=== PATIENT | male | born 1940 | race Caucasian/White ===

== ENCOUNTER 2019-09-02 12:36 | Emergency (ER) | payer MEDICARE, OTHER ==
--- NOTE | 2019-09-02 13:06 | EDM.PDOC ---
ED HPI GENERAL MEDICAL PROBLEM - General Chief Complaint: General Stated Complaint: WEAKNESS Time Seen by Provider: 09/02/19 12:39 Source of Information: Reports: Patient, EMS - History of Present Illness INITIAL COMMENTS - FREE TEXT/NARRATIVE: Presents via EMS. According to this provider, the patient's sister called the ambulance due to the patient's profound weakness, failure to thrive and that he had fallen or was on his knees and unable to get up. According to her, the patient [place] and very minimal contact with any family. Over the winter his sister had moved him to the [place] area to live with her. He did well until about 3 weeks ago when he quit eating, became depressed and failed to thrive. 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 EMS stated all he was eating was ice cream, candy and a small container of water in a day. Had been on his knees on the floor for an unknown period of time and has superficial abrasions there along with redness. The EMS provider stated that the patient initially seemed of sound mind while they were on scene was refusing to be transferred. He did make some statements about "put a gun to the head" and "find a hole to put me in". Whenever the patient could not get off the floor due to profound weakness and then made some statements which indicated confusion and thus he was transferred. The patient states he didn't fall and that he has no pain anywhere. He also states he has "no idea" why he is here. A review of the records indicates the patient has a primary provider here in [place]. His listed medical problems include diabetes mellitus, dyslipidemia , hypertension, urinary retention and dementia. Was last seen by his provider there on 02/26/2019. To his sister's knowledge he takes his medications on a regular basis. - Related Data Allergies Allergy/AdvReac Type Severity Reaction Status Date / Time No Known Allergies Allergy Verified 09/02/19 12:37 Home Meds: Home Meds Aspirin 81 mg PO DAILY 09/02/19 [History] Cyanocobalamin (Vitamin B-12) [Vitamin B-12] 1 tab PO ASDIRECTED 09/02/19 [ History] Donepezil [Aricept] 10 mg PO DAILY 09/02/19 [History] Finasteride 5 mg PO DAILY 09/02/19 [History] Lovastatin 10 mg PO DAILY 09/02/19 [History] Potassium Gluconate [Potassium] 99 mg PO DAILY 09/02/19 [History] lisinopriL [Lisinopril] 40 mg PO DAILY 09/02/19 [History] metFORMIN [Glucophage XR] 500 mg PO BID 09/02/19 [History] ED ROS GENERAL - Review of Systems Review Of Systems: Unable To Obtain (Due to confusion and delirium) Reason Not Obtained: Dementa/delirium Constitutional: Reports: No Symptoms ED EXAM, GENERAL - Physical Exam Exam: See Below Exam Limited By: Altered Mental Status General Appearance: Alert, No Apparent Distress, Cachetic, Other (Unkept) Eye Exam: Bilateral Eye: PERRL Ears: Normal External Exam Nose: Normal Inspection Throat/Mouth: Normal Inspection (Garcia), Other (dentition in poor repair) Head: Atraumatic, Normocephalic, Other (beared) Neck: Normal Inspection Respiratory/Chest: No Respiratory Distress, Lungs Clear, Normal Breath Sounds Cardiovascular: Normal Peripheral Pulses, Regular Rate, Rhythm, No Edema, No Murmur GI/Abdominal: Normal Bowel Sounds, Soft, Non-Tender, No Distention (Male) Exam: Normal Inspection Back Exam: Normal Inspection Extremities: Other (weak--could not bear weight) Neurological: Alert, Memory Loss Recent Events, Other (cognitive and memory deficit) Lymphatic: No Adenopathy EKG INTERPRETATION EKG Date: 09/02/19 Rhythm: NSR [place]: Normal P-Wave: Present QRS: Normal ST-T: Normal QT: Normal LA/PQ Interval: .15 Course - Vital Signs Last Recorded V/S: Last Vital Signs Temp 36.6 C 09/02/19 12:37 Pulse 68 09/02/19 18:38 Resp 17 09/02/19 18:08 BP 119/68 09/02/19 18:38 Pulse Ox 97 09/02/19 18:38 - Orders/Labs/Meds Orders: Active Orders 24 hr Category Date Time Status EKG 12 Lead [EKG Documentation Completion] [RC] ROUTINE Care 09/02/19 12:46 Active Kimball Catheter Insertion [Insert Urinary Catheter] [OM. Care 09/02/19 13:30 Ordered PC] Q24H Urinary Catheter Assessment [RC] ASDIRECTED Care 09/02/19 13:29 Active CULTURE BLOOD [BC] Stat Lab 09/02/19 13:20 Received CULTURE BLOOD [BC] Stat Lab 09/02/19 13:25 Received Heparin Sod,Pork In 0.45% Nacl [Heparin-1/2Ns 25,000 Med 09/02/19 16:00 Active Units/500] 25,000 unit in 500 ml IV TITRATE Blood Culture x2 Reflex Set [OM.PC] Stat Oth 09/02/19 13:07 Ordered Medication Orders Heparin Sodium/Sodium Chloride (Heparin-1/2ns 25,000 Units/500) 25,000 unit in 500 mls @ 17.962 mls/hr IV TITRATE ABEL; Protocol Last Admin: 09/02/19 16:34 Dose: 12 units/kg/hr, 17.962 mls/hr Labs: Laboratory Tests 09/02/19 09/02/19 09/02/19 Range/Units 12:52 12:52 12:52 WBC 16.34 H (4.0-11.0) K/uL RBC 5.39 (4.50-5.90) M/uL Hgb 16.2 (13.0-17.0) g/dL Hct 46.3 (38.0-50.0) % MCV 85.9 (80.0-98.0) fL MCH 30.1 (27.0-32.0) pg MCHC 35.0 (31.0-37.0) g/dL RDW Std Deviation 42.6 (28.0-62.0) fl RDW Coeff of Jonathan 14 (11.0-15.0) % Plt Count 237 (150-400) K/uL MPV 9.30 (7.40-12.00) fL Neut % (Auto) 85.3 H (48.0-80.0) % Lymph % (Auto) 7.4 L (16.0-40.0) % [place] % (Auto) 7.1 (0.0-15.0) % Eos % (Auto) 0.1 (0.0-7.0) % Baso % (Auto) 0.1 (0.0-1.5) % Neut # (Auto) 14.0 H (1.4-5.7) K/uL Lymph # (Auto) 1.2 (0.6-2.4) K/uL [place] # (Auto) 1.2 H (0.0-0.8) K/uL Eos # (Auto) 0.0 (0.0-0.7) K/uL Baso # (Auto) 0.0 (0.0-0.1) K/uL Nucleated RBC % 0.0 /100WBC Nucleated RBCs # 0 K/uL INR 1.01 APTT (18.6-31.3) SEC Lactate (0.20-2.00) mmol/L Sodium 143 (136-148) mmol/L Potassium 3.5 (3.5-5.1) mmol/L Chloride 104 (98-107) mmol/L Carbon Dioxide 26.3 (21.0-32.0) mmol/L BUN 20 H (7.0-18.0) mg/dL Creatinine 0.9 (0.8-1.3) mg/dL Est Cr Clr Drug Dosing 69.85 mL/min Estimated GFR (MDRD) > 60.0 ml/min Glucose 117 H (74-106) mg/dL Calcium 9.2 (8.5-10.1) mg/dL Total Bilirubin 0.8 (0.2-1.0) mg/dL AST 19 (15-37) IU/L ALT 12 L (14-63) IU/L Alkaline Phosphatase 97 (46-116) U/L Creatine Kinase 240 (26-308) U/L Troponin I 0.330 H* (0.000-0.056) ng/mL Total Protein 7.1 (6.4-8.2) g/dL Albumin 3.8 (3.4-5.0) g/dL Globulin 3.3 (2.6-4.0) g/dL Albumin/Globulin Ratio 1.2 (0.9-1.6) Urine Color Urine Appearance Urine pH (5.0-8.0) Ur Specific [place] (1.001-1.035) Urine Protein (NEGATIVE) mg/dL Urine Glucose (UA) (NEGATIVE) mg/dL Urine Ketones (NEGATIVE) mg/dL Urine Occult Blood (NEGATIVE) Urine Nitrite (NEGATIVE) Urine Bilirubin (NEGATIVE) Urine Urobilinogen (<2.0) EU/dL Ur Leukocyte Esterase (NEGATIVE) Urine RBC (0-2/HPF) Urine WBC (0-5/HPF) Ur Epithelial Cells (NONE-FEW) Amorphous Sediment (NEGATIVE) Urine Bacteria (NEGATIVE) 09/02/19 09/02/19 09/02/19 Range/Units 12:52 13:20 13:38 WBC (4.0-11.0) K/uL RBC (4.50-5.90) M/uL Hgb (13.0-17.0) g/dL Hct (38.0-50.0) % MCV (80.0-98.0) fL MCH (27.0-32.0) pg MCHC (31.0-37.0) g/dL RDW Std Deviation (28.0-62.0) fl RDW Coeff of Jonathan (11.0-15.0) % Plt Count (150-400) K/uL MPV (7.40-12.00) fL Neut % (Auto) (48.0-80.0) % Lymph % (Auto) (16.0-40.0) % [place] % (Auto) (0.0-15.0) % Eos % (Auto) (0.0-7.0) % Baso % (Auto) (0.0-1.5) % Neut # (Auto) (1.4-5.7) K/uL Lymph # (Auto) (0.6-2.4) K/uL [place] # (Auto) (0.0-0.8) K/uL Eos # (Auto) (0.0-0.7) K/uL Baso # (Auto) (0.0-0.1) K/uL Nucleated RBC % /100WBC Nucleated RBCs # K/uL INR APTT 25.7 (18.6-31.3) SEC Lactate 2.4 H* (0.20-2.00) mmol/L Sodium (136-148) mmol/L Potassium (3.5-5.1) mmol/L Chloride (98-107) mmol/L Carbon Dioxide (21.0-32.0) mmol/L BUN (7.0-18.0) mg/dL Creatinine (0.8-1.3) mg/dL Est Cr Clr Drug Dosing mL/min Estimated GFR (MDRD) ml/min Glucose (74-106) mg/dL Calcium (8.5-10.1) mg/dL Total Bilirubin (0.2-1.0) mg/dL AST (15-37) IU/L ALT (14-63) IU/L Alkaline Phosphatase (46-116) U/L Creatine Kinase (26-308) U/L Troponin I (0.000-0.056) ng/mL Total Protein (6.4-8.2) g/dL Albumin (3.4-5.0) g/dL Globulin (2.6-4.0) g/dL Albumin/Globulin Ratio (0.9-1.6) Urine Color YELLOW Urine Appearance HAZY Urine pH 6.0 (5.0-8.0) Ur Specific [place] 1.025 (1.001-1.035) Urine Protein TRACE H (NEGATIVE) mg/dL Urine Glucose (UA) NEGATIVE (NEGATIVE) mg/dL Urine Ketones 40 H (NEGATIVE) mg/dL Urine Occult Blood TRACE-INTACT H (NEGATIVE) Urine Nitrite NEGATIVE (NEGATIVE) Urine Bilirubin NEGATIVE (NEGATIVE) Urine Urobilinogen 0.2 (<2.0) EU/dL Ur Leukocyte Esterase NEGATIVE (NEGATIVE) Urine RBC 0-2 (0-2/HPF) Urine WBC 0-2 (0-5/HPF) Ur Epithelial Cells RARE (NONE-FEW) Amorphous Sediment LIGHT (NEGATIVE) Urine Bacteria RARE (NEGATIVE) 09/02/19 Range/Units 14:13 WBC (4.0-11.0) K/uL RBC (4.50-5.90) M/uL Hgb (13.0-17.0) g/dL Hct (38.0-50.0) % MCV (80.0-98.0) fL MCH (27.0-32.0) pg MCHC (31.0-37.0) g/dL RDW Std Deviation (28.0-62.0) fl RDW Coeff of Jonathan (11.0-15.0) % Plt Count (150-400) K/uL MPV (7.40-12.00) fL Neut % (Auto) (48.0-80.0) % Lymph % (Auto) (16.0-40.0) % [place] % (Auto) (0.0-15.0) % Eos % (Auto) (0.0-7.0) % Baso % (Auto) (0.0-1.5) % Neut # (Auto) (1.4-5.7) K/uL Lymph # (Auto) (0.6-2.4) K/uL [place] # (Auto) (0.0-0.8) K/uL Eos # (Auto) (0.0-0.7) K/uL Baso # (Auto) (0.0-0.1) K/uL Nucleated RBC % /100WBC Nucleated RBCs # K/uL INR APTT (18.6-31.3) SEC Lactate (0.20-2.00) mmol/L Sodium (136-148) mmol/L Potassium (3.5-5.1) mmol/L Chloride (98-107) mmol/L Carbon Dioxide (21.0-32.0) mmol/L BUN (7.0-18.0) mg/dL Creatinine (0.8-1.3) mg/dL Est Cr Clr Drug Dosing mL/min Estimated GFR (MDRD) ml/min Glucose (74-106) mg/dL Calcium (8.5-10.1) mg/dL Total Bilirubin (0.2-1.0) mg/dL AST (15-37) IU/L ALT (14-63) IU/L Alkaline Phosphatase (46-116) U/L Creatine Kinase (26-308) U/L Troponin I 0.378 H* (0.000-0.056) ng/mL Total Protein (6.4-8.2) g/dL Albumin (3.4-5.0) g/dL Globulin (2.6-4.0) g/dL Albumin/Globulin Ratio (0.9-1.6) Urine Color Urine Appearance Urine pH (5.0-8.0) Ur Specific [place] (1.001-1.035) Urine Protein (NEGATIVE) mg/dL Urine Glucose (UA) (NEGATIVE) mg/dL Urine Ketones (NEGATIVE) mg/dL Urine Occult Blood (NEGATIVE) Urine Nitrite (NEGATIVE) Urine Bilirubin (NEGATIVE) Urine Urobilinogen (<2.0) EU/dL Ur Leukocyte Esterase (NEGATIVE) Urine RBC (0-2/HPF) Urine WBC (0-5/HPF) Ur Epithelial Cells (NONE-FEW) Amorphous Sediment (NEGATIVE) Urine Bacteria (NEGATIVE) Meds: Medications Generic Name Dose Route Start Last Admin Trade Name Bing PRN Reason Stop Dose Admin Heparin Sodium/Sodium Chloride 25,000 unit in 500 mls @ 17.962 mls/hr 16:00 09/02/19 16:34 Heparin-1/2ns 25,000 Units/500 IV 12 units/kg/hr TITRATE ABEL 17.962 mls/hr Administration Protocol 12 UNITS/KG/HR Discontinued Medications Generic Name Dose Route Start Last Admin Trade Name Bing PRN Reason Stop Dose Admin Aspirin 324 mg 09/02/19 15:54 09/02/19 16:33 Aspirin PO 09/02/19 15:55 324 mg ONETIME ONE Administration Heparin Sodium (Porcine) 4,000 units 09/02/19 15:56 09/02/19 16:34 Heparin Sodium IVPUSH 09/02/19 15:57 4,000 units .BOLUS ONE Administration Ceftriaxone Sodium/Dextrose 1 50 mls @ 100 mls/hr 09/02/19 13:49 09/02/19 13: 57 gm/ Premix IV 09/02/19 14:18 100 mls/hr ONETIME ONE Administration Sodium Chloride 1,000 mls @ 999 mls/hr 09/02/19 13:48 09/02/19 13:57 Normal Saline IV 09/02/19 14:48 999 mls/hr STAT ONE Administration Heparin Sodium/Sodium Chloride Confirm 09/02/19 16:17 09/02/19 16:34 Heparin-1/2ns 25,000 Units/500 Administered 09/02/19 16:18 Not Given Dose 25,000 unit in 500 mls @ as directed IV .STK-MED ONE Sterile Water Confirm 09/02/19 19:53 Sterile Water For Injection Administered 09/02/19 19:54 Dose 20 mls @ as directed .ROUTE .STK-MED ONE Lorazepam 0.5 mg 09/02/19 17:57 09/02/19 18:06 Ativan IVPUSH 09/02/19 17:58 Not Given ONETIME ONE Metoprolol Succinate 25 mg 09/02/19 15:54 09/02/19 16:36 Toprol Xl PO 09/02/19 15:55 25 mg ONETIME ONE Administration Sterile Water 1.2 ml 09/02/19 17:59 09/02/19 18:06 Sterile Water For Injection INJECT 09/02/19 18:00 1.2 ml ONETIME ONE Administration Sterile Water 1.2 ml 09/02/19 19:53 Sterile Water For Injection INJECT 09/02/19 19:54 ONETIME ONE Ziprasidone 10 mg 09/02/19 17:59 09/02/19 18:05 Geodon IM 09/02/19 18:00 10 mg ONETIME ONE Administration Ziprasidone Confirm 09/02/19 17:59 09/02/19 18:06 Geodon Administered 09/02/19 18:00 Not Given Dose 20 mg .ROUTE .STK-MED ONE Ziprasidone 10 mg 09/02/19 19:53 Geodon IM 09/02/19 19:54 ONETIME ONE - Re-Assessments/Exams Free Text/Narrative Re-Assessment/Exam: 09/02/19 20:56 Dr. Galvan exam and management supervision. Free Text/Narrative Re-Assessment/Exam: 09/02/19 20:57 Continuous pulling at kimball, sliding to the end of the bed and trying to get up , pleasently confused. Re-directed. Geodon 10mg x 2 IM. Extended ER time due to delay in ground transfer. Departure - Departure Time of Disposition: 20:58 Disposition: DC/Tfer to Acute Hospital 02 Condition: Fair Clinical Impression: ACS (acute coronary syndrome) - Discharge Information Forms: ED Department Discharge Sepsis Event Note - Evaluation Sepsis Screening Result: No Definite Risk - Focused Exam Vital Signs: Vital Signs Temp Pulse Pulse Resp BP BP Pulse Ox 09/02/19 18:38 68 119/68 97 09/02/19 18:08 71 17 123/68 97 09/02/19 17:32 71 132/80 95 09/02/19 17:02 74 18 135/81 97 09/02/19 16:36 83 147/88 H 09/02/19 16:05 78 18 156/94 H 96 09/02/19 14:27 73 153/84 H 98 09/02/19 13:57 81 126/81 96 09/02/19 13:27 86 17 118/80 96 09/02/19 12:37 36.6 C 94 17 138/84 98 Date Exam was Performed: 09/02/19 Time Exam was Performed: 20:51 - My Orders Last 24 Hours: My Active Orders 09/02/19 12:46 EKG 12 Lead [EKG Documentation Completion] [RC] ROUTINE 09/02/19 13:07 Blood Culture x2 Reflex Set [OM.PC] Stat 09/02/19 13:20 CULTURE BLOOD [BC] Stat 09/02/19 13:25 CULTURE BLOOD [BC] Stat 09/02/19 13:29 Urinary Catheter Assessment [RC] ASDIRECTED 09/02/19 13:30 Kimball Catheter Insertion [Insert Urinary Catheter] [OM.PC] Q24H - Assessment/Plan Last 24 Hours: My Active Orders 09/02/19 12:46 EKG 12 Lead [EKG Documentation Completion] [RC] ROUTINE 09/02/19 13:07 Blood Culture x2 Reflex Set [OM.PC] Stat 09/02/19 13:20 CULTURE BLOOD [BC] Stat 09/02/19 13:25 CULTURE BLOOD [BC] Stat 09/02/19 13:29 Urinary Catheter Assessment [RC] ASDIRECTED 09/02/19 13:30 Kimball Catheter Insertion [Insert Urinary Catheter] [OM.PC] Q24H
[2019-09-02 13:39] LABS: BLOOD UREA NITROGEN,BUN 20 mg/dL (7.0-18.0); CARBON DIOXIDE,CO2 26.3 mmol/L (21.0-32.0); CHLORIDE,CL 104 mmol/L (98-107); GLUCOSE RANDOM 117 mg/dL (74-106); POTASSIUM,K 3.5 mmol/L (3.5-5.1); SODIUM,NA 143 mmol/L (136-148)
[2019-09-02] MEDS ORDERED: Sodium Chloride 0.9% 1,000 ML IV ONE (13:48)
[2019-09-02] MEDS ORDERED: cefTRIAXone 1 GM in Premix Bag 1 BAG IV ONE (13:49)
--- NOTE | 2019-09-02 14:41 | CR ---
Chest: AP view of the chest was obtained. Comparison: No previous chest imaging. Heart size and mediastinum are normal. Lungs are clear with no acute parenchymal change. Degenerative change is noted within both acromioclavicular joints with joint space narrowing and inferior spurring. Impression: 1. Findings as described above. 2. Nothing acute is seen on AP chest x-ray. Diagnostic code #2 This report was dictated in MDT
--- NOTE | 2019-09-02 15:08 | CT ---
Head CT Technique: Multiple axial sections through the brain were obtained. Intravenous contrast was not utilized. Comparison: No prior intracranial imaging is available. Findings: Ventricles along with basal cisterns and sulci over the convexities are mildly prominent. 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 Diminished density is noted within the subcortical as well as within the periventricular white matter on both sides which is most likely due to small vessel ischemic demyelination change. No other abnormal parenchymal densities are seen. No evidence of intracranial hemorrhage. No midline shift or mass-effect is seen. Bone window settings were reviewed. Visualized paranasal sinuses and mastoid sinuses show nothing acute. No acute calvarial abnormality is appreciated. Impression: 1. Senescent change as described above. 2. No acute intracranial abnormality is appreciated. Diagnostic code #3 This report was dictated in MDT
--- NOTE | 2019-09-02 15:36 | PCM.PN ---
- General Info Date of Service: 09/02/19 - Patient Data Vitals - Most Recent: Last Vital Signs Temp 97.8 F 09/02/19 12:37 Pulse 73 09/02/19 14:27 Resp 17 09/02/19 13:27 BP 153/84 H 09/02/19 14:27 Pulse Ox 98 09/02/19 14:27 Weight - Most Recent: 74.843 kg Lab Results Last 24 Hours: Laboratory Results - last 24 hr 09/02/19 09/02/19 09/02/19 Range/Units 12:52 12:52 13:20 WBC 16.34 H (4.0-11.0) K/uL RBC 5.39 (4.50-5.90) M/uL Hgb 16.2 (13.0-17.0) g/dL Hct 46.3 (38.0-50.0) % MCV 85.9 (80.0-98.0) fL MCH 30.1 (27.0-32.0) pg MCHC 35.0 (31.0-37.0) g/dL RDW Std Deviation 42.6 (28.0-62.0) fl RDW Coeff of Jonathan 14 (11.0-15.0) % Plt Count 237 (150-400) K/uL MPV 9.30 (7.40-12.00) fL Neut % (Auto) 85.3 H (48.0-80.0) % Lymph % (Auto) 7.4 L (16.0-40.0) % [place] % (Auto) 7.1 (0.0-15.0) % Eos % (Auto) 0.1 (0.0-7.0) % Baso % (Auto) 0.1 (0.0-1.5) % Neut # (Auto) 14.0 H (1.4-5.7) K/uL Lymph # (Auto) 1.2 (0.6-2.4) K/uL [place] # (Auto) 1.2 H (0.0-0.8) K/uL Eos # (Auto) 0.0 (0.0-0.7) K/uL Baso # (Auto) 0.0 (0.0-0.1) K/uL Nucleated RBC % 0.0 /100WBC Nucleated RBCs # 0 K/uL Lactate 2.4 H* (0.20-2.00) mmol/L Sodium 143 (136-148) mmol/L Potassium 3.5 (3.5-5.1) mmol/L Chloride 104 (98-107) mmol/L Carbon Dioxide 26.3 (21.0-32.0) mmol/L BUN 20 H (7.0-18.0) mg/dL Creatinine 0.9 (0.8-1.3) mg/dL Est Cr Clr Drug Dosing 69.85 mL/min Estimated GFR (MDRD) > 60.0 ml/min Glucose 117 H (74-106) mg/dL Calcium 9.2 (8.5-10.1) mg/dL Total Bilirubin 0.8 (0.2-1.0) mg/dL AST 19 (15-37) IU/L ALT 12 L (14-63) IU/L Alkaline Phosphatase 97 (46-116) U/L Creatine Kinase 240 (26-308) U/L Troponin I 0.330 H* (0.000-0.056) ng/mL Total Protein 7.1 (6.4-8.2) g/dL Albumin 3.8 (3.4-5.0) g/dL Globulin 3.3 (2.6-4.0) g/dL Albumin/Globulin Ratio 1.2 (0.9-1.6) Urine Color Urine Appearance Urine pH (5.0-8.0) Ur Specific [place] (1.001-1.035) Urine Protein (NEGATIVE) mg/dL Urine Glucose (UA) (NEGATIVE) mg/dL Urine Ketones (NEGATIVE) mg/dL Urine Occult Blood (NEGATIVE) Urine Nitrite (NEGATIVE) Urine Bilirubin (NEGATIVE) Urine Urobilinogen (<2.0) EU/dL Ur Leukocyte Esterase (NEGATIVE) Urine RBC (0-2/HPF) Urine WBC (0-5/HPF) Ur Epithelial Cells (NONE-FEW) Amorphous Sediment (NEGATIVE) Urine Bacteria (NEGATIVE) 09/02/19 09/02/19 Range/Units 13:38 14:13 WBC (4.0-11.0) K/uL RBC (4.50-5.90) M/uL Hgb (13.0-17.0) g/dL Hct (38.0-50.0) % MCV (80.0-98.0) fL MCH (27.0-32.0) pg MCHC (31.0-37.0) g/dL RDW Std Deviation (28.0-62.0) fl RDW Coeff of Jonathan (11.0-15.0) % Plt Count (150-400) K/uL MPV (7.40-12.00) fL Neut % (Auto) (48.0-80.0) % Lymph % (Auto) (16.0-40.0) % [place] % (Auto) (0.0-15.0) % Eos % (Auto) (0.0-7.0) % Baso % (Auto) (0.0-1.5) % Neut # (Auto) (1.4-5.7) K/uL Lymph # (Auto) (0.6-2.4) K/uL [place] # (Auto) (0.0-0.8) K/uL Eos # (Auto) (0.0-0.7) K/uL Baso # (Auto) (0.0-0.1) K/uL Nucleated RBC % /100WBC Nucleated RBCs # K/uL Lactate (0.20-2.00) mmol/L Sodium (136-148) mmol/L Potassium (3.5-5.1) mmol/L Chloride (98-107) mmol/L Carbon Dioxide (21.0-32.0) mmol/L BUN (7.0-18.0) mg/dL Creatinine (0.8-1.3) mg/dL Est Cr Clr Drug Dosing mL/min Estimated GFR (MDRD) ml/min Glucose (74-106) mg/dL Calcium (8.5-10.1) mg/dL Total Bilirubin (0.2-1.0) mg/dL AST (15-37) IU/L ALT (14-63) IU/L Alkaline Phosphatase (46-116) U/L Creatine Kinase (26-308) U/L Troponin I 0.378 H* (0.000-0.056) ng/mL Total Protein (6.4-8.2) g/dL Albumin (3.4-5.0) g/dL Globulin (2.6-4.0) g/dL Albumin/Globulin Ratio (0.9-1.6) Urine Color YELLOW Urine Appearance HAZY Urine pH 6.0 (5.0-8.0) Ur Specific [place] 1.025 (1.001-1.035) Urine Protein TRACE H (NEGATIVE) mg/dL Urine Glucose (UA) NEGATIVE (NEGATIVE) mg/dL Urine Ketones 40 H (NEGATIVE) mg/dL Urine Occult Blood TRACE-INTACT H (NEGATIVE) Urine Nitrite NEGATIVE (NEGATIVE) Urine Bilirubin NEGATIVE (NEGATIVE) Urine Urobilinogen 0.2 (<2.0) EU/dL Ur Leukocyte Esterase NEGATIVE (NEGATIVE) Urine RBC 0-2 (0-2/HPF) Urine WBC 0-2 (0-5/HPF) Ur Epithelial Cells RARE (NONE-FEW) Amorphous Sediment LIGHT (NEGATIVE) Urine Bacteria RARE (NEGATIVE) Med Orders - Current: Current Medications Discontinued Medications Ceftriaxone Sodium/Dextrose 1 (gm/ Premix) 50 mls @ 100 mls/hr IV ONETIME ONE Stop: 09/02/19 14:18 Last Admin: 09/02/19 13:57 Dose: 100 mls/hr Sodium Chloride (Normal Saline) 1,000 mls @ 999 mls/hr IV STAT ONE Stop: 09/02/19 14:48 Last Admin: 09/02/19 13:57 Dose: 999 mls/hr Sepsis Event Note - Evaluation Sepsis Screening Result: No Definite Risk - Focused Exam Vital Signs: Vital Signs Temp Pulse Resp BP Pulse Ox 09/02/19 14:27 73 153/84 H 98 09/02/19 13:57 81 126/81 96 09/02/19 13:27 86 17 118/80 96 09/02/19 12:37 97.8 F 94 17 138/84 98 Date Exam was Performed: 09/02/19 Time Exam was Performed: 15:31 - Problem List Review Problem List Initiated/Reviewed/Updated: No - Assessment Assessment:: Attending physician note I have seen and evaluated the patient with the advanced practice provider. Chief Complaint: Generalized weakness Brief HPI: 79-year-old male who presents with multiple falls and being found essentially resting on his knees at home. Multiple abrasions on his knees and feeling generally weak. He has a history of dementia and is unable to give a complete history. He denies shortness of breath, chest pain, abdominal pain or other symptoms. ROS: Reviewed and agree Focused Exam: VITAL SIGNS: Reviewed. GENERAL: Awake, conversant, GCS 14, appears mildly ill and is pale HEAD: No visible signs of trauma EYES: Pupils equal, EOM grossly intact EARS: Hearing grossly intact. MOUTH: No visible lesions NECK: Appears supple CHEST: Breathing comfortably, clear lung sounds CARDIAC: Regular rhythm ABDOMEN: Soft, nontender, benign exam NEUROLOGIC EXAM: Awake and Alert, non-focal, mildly confused, near baseline, no focal neurologic deficits. SKIN: No visible rashes EXTREMITIES: Bilateral lower extremity abrasions. Generally weak. VASCULAR: Appears well perfused 12 lead EKG interpretation Obtained: September 02, 2019 at 12:36 PM Rhythm: Sinus Rate: 85 [place]: Normal Intervals: Normal ST/T Segments: No acute ischemic changes Interpretation: Sinus Rhythm Assessment & Plan: Patient is found to have elevated troponin and an elevated lactate along with a leukocytosis. I feel that the patient is likely having a non-ST segment elevation DC. I feel that the leukocytosis is likely an acute phase reactant. There is no evidence of underlying infection. We did give empiric antibiotics. The patient's lactate is likely elevated secondary to poor perfusion caused by the NSTEMI. We will discuss the case with the hospitalist for admission versus transfer. We will give aspirin and discuss heparinization. Head CT is negative. 1. Likely non-ST segment elevation DC with elevated troponin 2. Leukocytosis likely an acute phase reactant 3. Elevated lactate likely secondary to poor perfusion
[2019-09-02] MEDS ORDERED: Metoprolol Succinate 25 MG Tab.ER PO ONE (15:54)
[2019-09-02] MEDS ORDERED: Aspirin 81 MG Tab.Chew PO ONE (15:54)
[2019-09-02] MEDS ORDERED: Heparin Sodium 5,000 Units/ML Vial IVPUSH ONE (15:56)
[2019-09-02] MEDS ORDERED: Heparin Sod,Pork In 0.45% Nacl 25,000 UNIT/500 ML IV.SOLN IV SCH (16:00)
--- NOTE | 2019-09-02 16:00 | PCM.SN.2 ---
- Free Text/Narrative Note: Critical Care Note: The patient presented in critical status due to non-ST segment elevation NM requiring heparinization The patient required rapid exam, decision making, and frequent re-evaluations during their time in the Emergency Department. Total Critical Care time exclusive of all other billable procedure time provided by myself 45 minutes At 1600 [address] spoke [address] Estevez, the hospitalist on-call, and he relates that this hospital is not equipped to take care of cardiology patients that are non-ST segment elevation MIs. He recommends transfer and heparinization. We will arrange for this.
--- NOTE | 2019-09-02 16:07 | PCM.SN.2 ---
- Free Text/Narrative Note: I discussed the case with Brenda Kirkland and Mark, and he will accept the patient. We will send via ground [facility].
[2019-09-02] MEDS ORDERED: Heparin Sod,Pork In 0.45% Nacl 25,000 UNIT/500 ML IV.SOLN IV ONE (16:17)
[2019-09-02] MEDS ORDERED: LORazepam 2 MG/ML SDV IVPUSH ONE (17:57)
[2019-09-02] MEDS ORDERED: Ziprasidone Mesylate 20 MG Vial ONE (17:59)
[2019-09-02] MEDS ORDERED: Water For Injection, Sterile 20 ML SDV INJECT ONE ×2 (17:59→19:53)
[2019-09-02] MEDS ORDERED: Ziprasidone Mesylate 20 MG Vial IM ONE ×2 (17:59→19:53)
[2019-09-02] MEDS ORDERED: Water For Injection, Sterile 20 ML ONE (19:53)
== END 2019-09-02 21:01 ==
LOC: MW.ED 12:36
DX: I24.9 Acute ischemic heart disease, unspecified (principal); K00.7 Teething syndrome; R41.89 Other symptoms and signs involving cognitive functions and awareness; Z79.899 Other long term (current) drug therapy; Z79.82 Long term (current) use of aspirin
CPT/HCPCS: 36415; 51702; 70450; 71045; 80053; 81001; 82550; 83605; 84484; 85025; 85610; 85730; 87040; 93005; 96361; 96365; 96366; 96367; 96372; 99285; A9270; J0696; J1644; J3486; J7030